=== PATIENT | female | born 1985 | race Caucasian/White ===

== ENCOUNTER 2018-11-21 22:51 | Emergency (ER) | payer OTHER ==
[2018-11-21 23:32] LABS: Absolute Lymphocytes (CBC) 2.8 K/uL (0.7-4.9); Absolute Monocytes 0.7 K/uL (0.1-1.3); Absolute Neutrophil 10.8 K/uL (1.8-8.0); Basophils % 0.4 % (0-1.3); Eosinophils % 1.7 % (0-4.4); Hematocrit 41.5 % (36.0-45.0); Lymphocytes % 19.4 % (15.3-44.8); MPV 9.4 fL (7.6-11.3); RBC Red Blood Cell Count 4.59 M/uL (3.86-4.86)
[2018-11-22 00:04] LABS: BUN Blood Urea Nitrogen 10 mg/dL (7-18); Bicarbonate 20 mmol/L (21-32); Glucose Level 128 mg/dL (74-106); HCG, Quantitative 50566 mIU/mL (1-3); Potassium 3.7 mmol/L (3.5-5.1); Sodium Level 138 mmol/L (136-145)
--- NOTE | 2018-11-22 00:52 | EDPHYS ---
Physician Documentation [facility] Name: Kaitlin Gimenez Age: 33 yrs Sex: Female : 1985 Arrival Date: 11/21/2018 Time: 22:52 Bed 7 Private MD: Emely Dick H ED Physician Kurt Roman HPI: 11/22 00:42 This 33 yrs old Female presents to ER via Ambulatory with complaints of jr8 Vaginal Bleeding, + Preg <12wks. 00:42 The patient presents to the emergency department with vaginal bleeding, that is jr8 moderate, with clots. The estimated gestational age is 8 weeks. course: care: private OB physician, Leakage of Fluid: none appreciated, Ultrasound: the patient has not had an ultrasound. Previous pregnancies: in previous pregnancies patient has had no complications. Associated signs and symptoms: Pertinent positives: abdominal pain. The patient has not experienced similar symptoms in the past. The patient has not recently seen a physician. Patient stated that her boyfriend and her had finished having sexual intercourse. While take a shower saw bleeding and large clots come out of her vagina. Mild abdominal cramping as well . 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 - Ebola Screening: : No symptoms or risks identified at this time. - Social history:: Smoking status: Patient uses tobacco products, smokes one-half pack cigarettes per day. ROS: 11/22 00:42 Eyes: Negative for injury, pain, redness, and discharge, ENT: Negative for injury, jr8 pain, and discharge, Neck: Negative for injury, pain, and swelling, Cardiovascular: Negative for chest pain, palpitations, and edema, Respiratory: Negative for shortness of breath, cough, wheezing, and pleuritic chest pain, Back: Negative for injury and pain, MS/Extremity: Negative for injury and deformity, Skin: Negative for injury, rash, and discoloration, Neuro: Negative for headache, weakness, numbness, tingling, and seizure. Abdomen/GI: Positive for abdominal cramps, Negative for abdominal pain, nausea, vomiting, and diarrhea. : Positive for vaginal bleeding, menstrual abnormality. Exam: 00:42 Eyes: Pupils equal round and reactive to light, extra-ocular motions intact. Lids and jr8 lashes normal. Conjunctiva and sclera are non-icteric and not injected. Cornea within normal limits. Periorbital areas with no swelling, redness, or edema. ENT: Nares patent. No nasal discharge, no septal abnormalities noted. Tympanic membranes are normal and external auditory canals are clear. Oropharynx with no redness, swelling, or masses, exudates, or evidence of obstruction, uvula midline. Mucous membranes moist. Neck: Trachea midline, no thyromegaly or masses palpated, and no cervical lymphadenopathy. Supple, full range of motion without nuchal rigidity, or vertebral point tenderness. No Meningismus. Cardiovascular: Regular rate and rhythm with a normal S1 and S2. No gallops, murmurs, or rubs. Normal PMI, no JVD. No pulse deficits. Respiratory: Lungs have equal breath sounds bilaterally, clear to auscultation and percussion. No rales, rhonchi or wheezes noted. No increased work of breathing, no retractions or nasal flaring. Abdomen/GI: Soft, non-tender, with normal bowel sounds. No distension or tympany. No guarding or rebound. No evidence of tenderness throughout. Back: No spinal tenderness. No costovertebral tenderness. Full range of motion. Skin: Warm, dry with normal turgor. Normal color with no rashes, no lesions, and no evidence of cellulitis. MS/ Extremity: Pulses equal, no cyanosis. Neurovascular intact. Full, normal range of motion. Neuro: Awake and alert, GCS 15, oriented to person, place, time, and situation. Cranial nerves II-XII grossly intact. Motor strength 5/5 in all extremities. Sensory grossly intact. Cerebellar exam normal. Normal gait. Vital Signs: 11/21 23:14 BP 137 / 96; Pulse 92; Resp 18; Temp 98.9(O); Pulse Ox 98% on R/A; lp1 23:27 Weight 95.25 kg; Height 5 ft. 7 in. (170.18 cm); lp1 11/22 00:24 BP 131 / 93; Pulse 94; Resp 18; Pulse Ox 95% on R/A; ca1 02:00 BP 130 / 91; Pulse 88; Resp 19; Pulse Ox 97% on R/A; ca1 11/21 23:27 Body Mass Index 32.89 (95.25 kg, 170.18 cm) lp1 MDM: 11/21 22:57 Patient medically screened. [facility] 11/22 00:42 Data reviewed: vital signs, nurses notes, lab test result(s), radiologic studies, [facility] ultrasound. Data interpreted: Pulse oximetry: on room air is 95 %. Interpretation: normal. Counseling: I had a detailed discussion with the patient and/or guardian regarding: the historical points, exam findings, and any diagnostic results supporting the discharge/admit diagnosis, lab results, radiology results, the need for outpatient follow up, an OB/Gyne specialist, to return to the emergency department if symptoms worsen or persist or if there are any questions or concerns that arise at home. 11/21 23:02 Order name: Quantitative Hcg; Complete Time: 00:24 [facility] 11/21 23:02 Order name: Abo/rh Typing [facility] 11/21 23:02 Order name: Basic Metabolic Panel; Complete Time: 00:24 [facility] 11/21 23:02 Order name: CBC with Diff; Complete Time: 00:00 [facility] 11/22 00:00 Order name: ABO/RH no charge; Complete Time: 00:00 [facility] 11/22 00:24 Order name: Urine Dipstick--Ancillary (enter results) [facility] 11/21 23:45 Order name: Transvaginal Study (probe) bb 11/22 00:24 Order name: Urine --Ancillary (enter results) [facility] 11/22 00:40 Order name: Rh Typing [facility] 11/22 00:40 Order name: Antibody Screen EDAZ 11/22 00:40 Order name: Fetalscreen [facility] 11/22 00:40 Order name: Cord Rh type [facility] 11/22 00:40 Order name: Rhogam [facility] 11/21 23:02 Order name: Urine Test (obtain specimen); Complete Time: 00:23 [facility] 11/21 23:02 Order name: IV Saline Lock; Complete Time: 23:21 [facility] 11/21 23:02 Order name: Labs collected and sent; Complete Time: 23:22 [facility] 11/21 23:02 Order name: NPO; Complete Time: 23:22 [facility] 11/21 23:02 Order name: Urine Dipstick-Ancillary (obtain specimen); Complete Time: 23: [facility] Administered Medications: 01:50 Drug: RhoGAM (Human) 300 mcg Route: IM; Site: right gluteus; ca1 02:12 Follow up: Response: No adverse reaction ca1 Point of Care Testing: Urine : 02:10 hCG Reading: Positive; Control Reading: Positive; ca1 Disposition: 02:13 Co-signature as Attending Physician, Kurt Roman MD. estefania Disposition: 11/22/18 00:51 Discharged to Home. Impression: Threatened . - Condition is Stable. - Discharge Instructions: Threatened Miscarriage, Vaginal Bleeding During , First Trimester, Pelvic Rest. - Medication Reconciliation Form, Thank You Letter, Antibiotic Education, Prescription Opioid Use form. - Follow up: Private Physician; When: 2 - 3 days; Reason: Recheck today's complaints, Continuance of care, Re-evaluation by your physician. - Problem is new. - Symptoms have improved. Signatures: Dispatcher [employer] Kurt Landin MD MD pkl Gela Quiroz RN RN lp1 Aaron Magallanes PA PA jr8 Jyotsna Hawthorne RN RN ca1 Corrections: (The following items were deleted from the chart) 02:12 00:51 11/22/2018 00:51 Discharged to Home. Impression: Threatened . Condition ca1 is Stable. Forms are Medication Reconciliation Form, Thank You Letter, Antibiotic Education, Prescription Opioid Use. Follow up: Private Physician; When: 2 - 3 days; Reason: Recheck today's complaints, Continuance of care, Re-evaluation by your physician. Problem is new. Symptoms have improved. jr8
--- NOTE | 2018-11-22 00:52 | ER ---
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 Transition of care: patient was not received from another setting of care. Onset of symptoms was November 21, 2018 at 22:30. Risk Assessment: Do you want to hurt yourself or someone else? Patient reports no desire to harm self or others. Initial Sepsis Screen: Does the patient meet any 2 criteria? No. Patient's initial sepsis screen is negative. Does the patient have a suspected source of infection? No. Patient's initial sepsis screen is negative. Care prior to arrival: None. 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 - Ebola Screening: : No symptoms or risks identified at this time. - Social history:: Smoking status: Patient uses tobacco products, smokes one-half pack cigarettes per day. Screenin:27 Abuse screen: Denies threats or abuse. Denies injuries from another. Nutritional lp1 screening: No deficits noted. Tuberculosis screening: No symptoms or risk factors identified. Fall Risk None identified. Assessment: 23:20 General: Appears in no apparent distress. Behavior is calm, cooperative, appropriate ca1 for age. Pain: Complains of pain in abdomen Pain currently is 3 out of 10 on a pain scale. Quality of pain is described as crampy. Neuro: Level of Consciousness is awake, alert, obeys commands, Oriented to person, place, time, situation. Cardiovascular: Heart tones S1 S2 present Capillary refill < 3 seconds Patient's skin is warm and dry. Respiratory: Airway is patent Trachea midline Respiratory effort is even, unlabored, Respiratory pattern is regular, symmetrical, Breath sounds are clear bilaterally. 23:20 GI: Abdomen is flat, non-distended, Bowel sounds present X 4 quads. Abd is soft Abdomen ca1 is tender to palpation Reports cramping. : Reports vaginal bleeding that is with clots, since 30 minutes ago when she was in the shower. EENT: No signs and/or symptoms were reported regarding the EENT system. Derm: Skin is intact, is healthy with good turgor, Skin is pink, warm \T\ dry. Musculoskeletal: Circulation, motion, and sensation intact. Range of motion: intact in all extremities. 23:54 Reassessment: Ultrasound at bedside. lp1 11/22 00:24 Reassessment: Patient appears in no apparent distress at this time. Patient and/or ca1 family updated on plan of care and expected duration. Pain level reassessed. Patient is alert, oriented x 3, equal unlabored respirations, skin warm/dry/pink. Sitting in bed with family at bedside. 01:12 Reassessment: Patient appears in no apparent distress at this time. Patient and/or ca1 family updated on plan of care and expected duration. Pain level reassessed. Patient is alert, oriented x 3, equal unlabored respirations, skin warm/dry/pink. Awaiting RhoGAM. 02:00 Reassessment: Patient appears in no apparent distress at this time. Patient and/or ca1 family updated on plan of care and expected duration. Pain level reassessed. Patient is alert, oriented x 3, equal unlabored respirations, skin warm/dry/pink. Patient sitting on bed with significant other awaiting observation after administration of RhoGam. Vital Signs: 11/21 23:14 BP 137 / 96; Pulse 92; Resp 18; Temp 98.9(O); Pulse Ox 98% on R/A; lp1 23:27 Weight 95.25 kg; Height 5 ft. 7 in. (170.18 cm); lp1 11/22 00:24 BP 131 / 93; Pulse 94; Resp 18; Pulse Ox 95% on R/A; ca1 02:00 BP 130 / 91; Pulse 88; Resp 19; Pulse Ox 97% on R/A; ca1 11/21 23:27 Body Mass Index 32.89 (95.25 kg, 170.18 cm) lp1 ED Course: 11/21 22:52 Patient arrived in ED. do 22:52 Emely Dick DO is Private Physician. do 22:57 Aaron Magallanes PA is PHCP. jr8 22:57 Kurt Roman MD is Attending Physician. jr8 23:01 Triage completed. lp1 23:04 Jyotsna Hawthorne, AMARILIS is Primary Nurse. ca1 23:17 Arm band placed on left wrist. lp1 23:20 Patient has correct armband on for positive identification. Placed in gown. Bed in low ca1 position. Call light in reach. Side rails up X 1. Pulse ox on. NIBP on. Warm blanket given. 23:20 Initial lab(s) drawn, by me, sent to lab. Inserted saline lock: 20 gauge in right ca1 antecubital area, using aseptic technique. Blood collected. 11/22 00:22 Transvaginal Study (probe) In Process Unspecified. EDMS 00:24 Ultrasound completed. Patient tolerated well. Notified CORONER'S JUROR/LUZMARIA abbasi. sg3 01:59 Rhogam Sent. ca1 02:00 No provider procedures requiring assistance completed. IV discontinued, intact, ca1 bleeding controlled, No redness/swelling at site. Pressure dressing applied. Administered Medications: 01:50 Drug: RhoGAM (Human) 300 mcg Route: IM; Site: right gluteus; ca1 02:12 Follow up: Response: No adverse reaction ca1 Point of Care Testing: Urine : 02:10 hCG Reading: Positive; Control Reading: Positive; ca1 Outcome: 00:51 Discharge ordered by . jr8 02:00 Discharged to home ambulatory, with significant other. ca1 02:00 Condition: stable 02:00 Discharge instructions given to patient, significant other, Instructed on discharge instructions, follow up and referral plans. Demonstrated understanding of instructions, follow-up care. 02:12 Patient left the ED. ca1 Signatures: Dispatcher [employer] EDMS Richie Gela, AMARILIS RN lp1 Aaron Magallanes PA PA jr8 Arminda Baker [facility] Jyotsna Hawthorne RN RN ca1 Corrections: (The following items were deleted from the chart) 00:44 00:24 BP 236 / 93; Pulse 94bpm; Resp 18bpm; Pulse Ox 95% RA; ca1 ca1
[2018-11-22 01:03] LABS: Urine Blood 2+ (NEG); Urine Glucose NEGATIVE (NEG); Urine Protein NEGATIVE (NEG); Urine Specific Gravity >1.030 (1.005-1.030); Urine pH 5.5 (5.0-7.0)
--- NOTE | 2018-11-22 11:52 | RAD REPORT ---
EXAM DESCRIPTION: US - Transvaginal Study Probe - 11/22/2018 12:22 am CLINICAL HISTORY: ABD CRAMPING, COMPARISON: No comparisons FINDINGS: A single gestational sac is seen within the uterus. The shape of the sac is within normal limits for gestational age. Within the sac is a single pole with crown-rump length of 17 mm, co rrelating to estimated gestational age of 8 weeks and 1 day. Estimated date of delivery is 07/03/2019 . Heart rate is 171 bpm. The placenta is not yet developed due to early gestational age. 8 x 6 mm inferior subchorionic bleed. The maternal adnexa are within normal limits. The left ovary was not visualized. Normal Doppler blood flow was demonstrated to the right ovary. IMPRESSION: Single live early intrauterine gestation with estimated gestational age of 8 weeks and 1 day, JUMA 07/03/19.
== END 2018-11-22 02:12 | disposition home or self-care (01) ==
LOC: ER 22:51
DX: O20.0 Threatened abortion (principal); O99.281 Endocrine, nutritional and metabolic diseases complicating pregnancy, first trimester; E03.9 Hypothyroidism, unspecified; O99.331 Smoking (tobacco) complicating pregnancy, first trimester; F17.210 Nicotine dependence, cigarettes, uncomplicated; Z3A.08 8 weeks gestation of pregnancy; Z79.899 Other long term (current) drug therapy
CPT/HCPCS: 36415; 76830; 80048; 81003; 81025; 84702; 85025; 86850; 86900; 86901; 96372; 99284; J2790

== ENCOUNTER 2018-11-27 19:19 | Emergency (ER) | payer OTHER ==
--- NOTE | 2018-11-27 19:45 | ER ---
Nurse's Notes [facility] Name: Kaitlin Gimenez Age: 33 yrs Sex: Female : 1985 Arrival Date: 11/27/2018 Time: 19:20 Bed Waiting Private MD: Diagnosis: Presentation: 11/27 19:43 Note Patient told registration staff that she did not want to wait any longer and aj1 walked out of the ER. ED Course: 19:20 Patient arrived in ED. ag3 Administered Medications: No medications were administered Outcome: 19:43 Eloped from waiting room, before seeing physician ajYulisa 19:44 Patient left the ED. aj1 Signatures: Lou Markham RN RN aj1 Pura Baez ag3
== END 2018-11-27 19:44 | disposition left against medical advice (07) ==
LOC: ER 19:19
DX: Z53.21 Procedure and treatment not carried out due to patient leaving prior to being seen by health care provider (principal)

== ENCOUNTER 2022-08-05 18:42 | Emergency (ER) | payer OTHER, SELFPAY ==
--- OUTSIDE RECORDS SUMMARY | 2022-08-05 18:45 | XMS REPORT | Continuity of Care Document ---
:1985 Author Organization [facility] t Address [address] [place] [address] Care Team Providers Name Role Phone SONAL TAYLOR Attending Clinician Unavailable JAYDA ZULETA Attending Clinician Unavailable Problems This patient has no known problems. Allergies, Adverse Reactions, Alerts Allergy Allergy Status Severity Reaction(s) Onset Inactive Treating Comm ents Source Name Type Date Date Clinician NO KNOWN Drug Active [facility] ALLERGIE Class [facility] Medications This patient has no known medications. Procedures This patient has no known procedures. Encounters Start End Encounter Admission Attending Care Care Encounter Source Date/Time Date/Time Type Type Clinicians Facility Department ID 2021-06-23 2021-06-23 Outpatient R [facility] [id number] Univers 12:40:00 12:40:00 [id number] [facility] 2021-06-23 2021-06-23 Outpatient R CLAUDIA [facility] [id number] Univers 12:40:00 12:40:00 SONAL [facility] 2020-07-26 2020-07-26 Outpatient R SONG [facility] [id number] Univers 14:30:00 14:30:00 JAYDA [id number] [facility] 2020-07-26 2020-07-26 Outpatient R SONG [facility] [id number] Univers 14:30:00 14:30:00 JAYDA [facility] Results This patient has no known results.
--- NOTE | 2022-08-05 19:15 | ER ---
Nurse's Notes [facility] Name: Kaitlin Gimenez Age: 37 yrs Sex: Female : 1985 Arrival Date: 08/05/2022 Time: 18:43 Bed Waiting Private MD: Emely Dick H Diagnosis: Presentation: 08/05 19:14 Note notified by registration pt left the ED prior to discharge. bb ED Course: 18:43 Patient arrived in ED. am2 18:43 Emely Dick DO is Private Physician. am2 Administered Medications: No medications were administered Outcome: 19:15 Patient left the ED. bb Signatures: Alexia Aggarwal RN RN Chikis Lemus am2
== END 2022-08-05 19:15 | disposition left against medical advice (07) ==
LOC: ER 18:42
DX: Z02.9 Encounter for administrative examinations, unspecified (principal)

== ENCOUNTER 2023-11-03 23:52 | Emergency (ER) | payer OTHER ==
--- OUTSIDE RECORDS SUMMARY | 2023-11-03 23:55 | XMS REPORT | Continuity of Care Document ---
Author Name Unknown Address [address] [facility] [address] [place] [address] [facility] thconnect Address [address] [facility] 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 Role Phone RILEY SEARS Primary Care Physician Unavail able [email or web address]_S Attending Clinician Unavailanna marie spivey Doctor Unassigned, [place] Attending Clinician U Luis Alberto Meza Attending Clinician UnavailHi Jones DO Attending Clinician [phone] Cara Morel DO Attending Clinician [phone] Izzy Muniz MD Attending Clinician [phone] Pavan Solano MD Attending Clinician [phone] PAVAN SOLANO Attending Clinician Unavailable SONAL TAYLOR Attending Clinician Unavailable JAYDA ZULETA Attending Clinician Unavailable [email or web address]_S Admitting Clinician UnavailPavan Greco MD Admitting Clinician [phone] PAVAN SOLANO Admitting Clinician Unavailable Payers Payer Name Policy Type Policy Number Effective Date Expirati on Date Source Problems Condition Name Condition Details Condition Category Status Onset Date Resolution Date Last Treatment Date Treating Clinician Comments Source Acute abdominal pain Acute abdominal pain Disease Active 08-06 00:00: 00 [facility] 37 weeks gestation of 37 weeks gestation of Disease Active 20 00:00: 00 [facility] Tubal ligation status Tubal ligation status Disease Active 15 00:00: 00 [facility] Preeclamps ia Preeclamps ia Disease Active 05-27 00:00: 00 [facility] Obesity (BMI 30-39.9) Obesity (BMI 30-39.9) Disease Active 05-27 00:00: 00 [facility] Elevated blood pressure affecting in third trimester, antepartum Elevated blood pressure affecting in third trimester, antepartum Disease Active 05-25 00:00: 00 [facility] Rh negative state in antepartum period Rh negative state in antepartum period Disease Active 12-28 00:00: 00 Overview: Formattin g of this note might be different from the original. Will need rhogam at 28 weeks [facility] Cervical high risk human papillomav irus (HPV) DNA test positive Cervical high risk human papillomav irus (HPV) DNA test positive Disease Active 12-28 00:00: 00 Overview: Formattin g of this note might be different from the original. 11/2018 NIL pap with positive HPV see scanned records, need cotesting in 12 months [facility] Obesity affecting Obesity affecting Disease Active 12-25 00:00: 00 [facility] Supervisio n of high-risk of elderly multigravi da Supervisio n of high-risk of elderly multigravi da Disease Active 12-25 00:00: 00 [facility] Hypothyroi d in , antepartum Hypothyroi d in , antepartum Disease Active 12-25 00:00: 00 [facility] History of section History of section Disease Active 12-25 00:00: 00 [facility] Allergies, Adverse Reactions, Alerts Allergy Name Allergy Type Status Severity Reaction(s) Onset Date Inactive Date Treating Clinician Comments Source NO KNOWN ALLERGIE S Drug Class Active [facility] Social History Social Habit Start Date Stop Date Quantity Comments Source History of tobacco use Cigarette Smoker [facility] Cigarettes smoked current (pack per day) - Reported 2022-08-06 00:00:00 2022-08-06 00:00:00 [facility] Cigarette pack-years 2022-08-06 00:00:00 2022-08-06 00:00:00 [facility] Tobacco use and exposure 2022-08-06 00:00:00 2022-08-06 00:00:00 Smokeless tobacco non-user [facility] Alcohol intake 2022-08-06 00:00:00 2022-08-06 00:00:00 Current non-drinker of alcohol (finding) [facility] Tobacco Comment 2022-08-06 00:00:00 2022-08-06 00:00:00 Smokes half pack a day [facility] Exposure to SARS-CoV-2 (event) 2022-07-26 00:00:00 2022-08-05 20:38:00 Not sure [facility] Sex Assigned At 1985 00:00:00 1985 00:00:00 [facility] Smoking Status Start Date Stop Date Source Smokes tobacco daily 2022-08-06 00:00:00 [facility] Medications Ordered Medication Name Filled Medication Name Start Date Stop Date Current Medication? Ordering Clinician Indication Dosage Frequency Signature (SIG) Comments Components Source levothyroxi ne (SYNTHROID) tablet 200 mcg 08-07 11:00: 00 Yes 200ug 200 mcg, Oral, QAM-0600, First dose on Fri08/07/22 at 0600, Until Discontinu ed, Routine [facility] lisinopriL 10 mg tablet 08-07 00:00: 00 09-07 04:59 :00 No [id number] 10mg Take 1 tablet by mouth in the morning for 30 days. [facility] enoxaparin (LOVENOX) injection 40 mg 08-06 22:00: 00 Yes 40mg 40 mg, Subcutaneo us, DAILY, First dose on Fri08/06/22 at 1700, Until Discontinu ed, Routine [facility] lisinopriL (PRINIVIL,Z ESTRIL) tablet 10 mg 08-06 14:00: 00 Yes 10mg 10 mg, Oral, DAILY, First dose on Fri08/06/22 at 0900, Until Discontinu ed, Routine [facility] amLODIPine (NORVASC) tablet 10 mg 08-06 14:00: 00 Yes 10mg 10 mg, Oral, DAILY, First dose on Fri08/06/22 at 0900, Until Discontinu ed, Routine [facility] hydroCHLORO thiazide (ESIDRIX) tablet 50 mg 08-06 14:00: 00 Yes 50mg 50 mg, Oral, DAILY, First dose on Fri08/06/22 at 0900, Until Discontinu ed, Routine [facility] NaCl 0.9% (NS) IV infusion 1,000 mL 08-06 11:15: 00 08-06 14:59 :10 No 1000mL at 125 mL/hr, IV Infusion, CONTINUOUS , Starting on Fri08/06/22 at 0615, Until Fri08/06/22 at 0959, Routine [facility] ondansetron (ZOFRAN (PF)) injection 4 mg 08-06 11:02: 42 Yes 4mg 4 mg, Slow IV Push, Q6HPRN, Starting on Fri08/06/22 at 0602, Until Discontinu ed, Routine, Nausea and Vomiting (N/V) [facility] morpHINE (2 mg/mL) injection 2 mg 08-06 11:02: 33 08-07 11:01 :33 No 2mg 2 mg, Slow IV Push, Q4HPRN, Starting on Fri08/06/22 at 0602, Until Fri08/07/22 at 0601, Routine, Pain (scale 7-10) [facility] traMADoL (ULTRAM) tablet 50 mg 08-06 11:02: 26 08-08 11:01 :26 No 50mg 50 mg, Oral, Q8HPRN, Starting on Fri08/06/22 at 0602, Until Fri08/08/22 at 0601, Routine, Pain (scale 4-6) [facility] acetaminoph en (TYLENOL) tablet 650 mg 08-06 11:02: 23 Yes 650mg 650 mg, Oral, Q6HPRN, Starting on Fri08/06/22 at 0602, Until Discontinu ed, Routine, Pain (scale 1-3) [facility] docusate calcium (SURFAK) capsule 240 mg 08-06 10:59: 50 Yes 240mg 240 mg, Oral, QDAILYPRN, Starting on Fri08/06/22 at 0559, Until Discontinu ed, Routine, Constipati on [facility] ondansetron (ZOFRAN (PF)) injection 4 mg 08-06 08:15: 00 08-06 08:17 :00 No 4mg 4 mg, Slow IV Push, ONCE, 1 dose, On Fri08/06/22 at 0315, NIK [facility] FENTanyl PF (SUBLIMAZE (PF)) injection 50 mcg 08-06 08:12: 00 08-06 08:17 :00 No 50ug 50 mcg, Slow IV Push, ONCE, 1 dose, On Fri08/06/22 at 0315, NIK [facility] acetaminoph en ADULT (OFIRMEV) injection 1,000 mg 08-06 07:35: 00 08-06 08:41 :00 No 1000mg 1,000 mg, IV Infusion, at 400 mL/hr Administer over 15 Minutes, ONCE, 1 dose, On Fri08/06/22 at 0245, NIK
In dication: Non-periop erative Patient
Approved by: Per Policy (NPO Status) [facility] hydralAZINE (APRESOLINE ) injection 20 mg 08-06 07:34: 00 08-06 07:44 :00 No 20mg 20 mg, Slow IV Push, ONCE, 1 dose, On Fri08/06/22 at 0245, NIK [facility] iopamidol (ISOVUE 370-500 mL) injection 85 mL 08-06 07:30: 00 08-06 07:30 :00 No [id number] 85mL 85 mL, Intravenou s, ONCE, 1 dose, On Fri08/06/22 at 0230, Routine [facility] cloNIDine (CATAPRES) tablet 0.3 mg 08-06 04:37: 00 08-06 04:41 :00 No .3mg 0.3 mg, Oral, ONCE, 1 dose, On Fri08/05/22 at 2345, [facility] labetaloL (NORMODYNE) injection 20 mg 08-06 04:36: 00 08-06 04:41 :00 No 20mg 20 mg, Slow IV Push, ONCE, 1 dose, On Fri08/05/22 at 2345, [facility] lisinopriL (PRINIVIL,Z ESTRIL) tablet 5 mg 08-06 03:15: 00 08-06 02:46 :00 No 5mg 5 mg, Oral, ONCE NOW, 1 dose, On Fri08/05/22 at 2215, [facility] labetaloL (NORMODYNE) injection 20 mg 08-06 03:15: 00 08-06 03:23 :00 No 20mg 20 mg, Slow IV Push, ONCE, 1 dose, On Fri08/05/22 at 2215, Routine [facility] maalox:diph enhydrAMINE :lidocaine 2 % viscous 1:1:1 ([facility]) oral suspension 15 mL 08-06 02:30: 00 08-06 02:46 :00 No 15mL 15 mL, Oral, ONCE, 1 dose, On Fri08/05/22 at 2130, Routine [facility] ketorolac (TORADOL) injection 15 mg 08-06 02:30: 00 08-06 03:23 :00 No 15mg 15 mg, Slow IV Push, ONCE, 1 dose, On Fri08/05/22 at 2130, [facility] pantoprazol e (PROTONIX) 80 mg in NaCl 0.9% (NS) 20 mL syringe 08-06 02:22: 00 08-06 02:32 :00 No 80mg 80 mg, IV Push, ONCE, 1 dose, On Fri08/05/22 at 2130, Administer over 2 Minutes, 20 mL [facility] docusate calcium 240 mg capsule 08-06 00:00: 00 Yes [id number] 240mg Take 1 capsule by mouth once daily as needed for Constipati on. [facility] docusate calcium 240 mg capsule 08-06 00:00: 00 Yes [id number] 240mg Take 1 capsule by mouth once daily as needed for Constipati on. [facility] docusate calcium 240 mg capsule 08-06 00:00: 00 Yes [id number] 240mg Take 1 capsule by mouth once daily as needed for Constipati on. [facility] amLODIPine 5 mg tablet 08-06 00:00: 00 09-06 04:59 :00 No [id number] 5mg Take 1 tablet by mouth in the morning for 30 days. [facility] levothyroxi ne 200 mcg tablet 08-18 00:00: 00 Yes [id number] 200ug Take 1 tablet by mouth every morning. [facility] levothyroxi ne 200 mcg tablet 08-18 00:00: 00 Yes [id number] 200ug Take 1 tablet by mouth every morning. [facility] levothyroxi ne 200 mcg tablet 08-18 00:00: 00 Yes [id number] 200ug Take 1 tablet by mouth every morning. [facility] hydroCHLORO thiazide 50 mg tablet 06-14 00:00: 00 08-06 00:00 :00 No [id number] 50mg Take 1 tablet by mouth daily. [facility] simethicone 80 mg chewable tablet 06-13 00:00: 00 Yes [id number] 160mg Take 2 tablets by mouth after meals and at bedtime as needed for Gas. [facility] simethicone 80 mg chewable tablet 06-13 00:00: 00 Yes [id number] 160mg Take 2 tablets by mouth after meals and at bedtime as needed for Gas. [facility] simethicone 80 mg chewable tablet 06-13 00:00: 00 Yes [id number] 160mg Take 2 tablets by mouth after meals and at bedtime as needed for Gas. [facility] acetaminoph en-codeine 300-30 mg tablet 06-13 00:00: 00 08-06 00:00 :00 No [id number] 1{tbl} Take 1 tablet by mouth every 4 (four) hours as needed for Pain (scale 7-10). [facility] docusate calcium 240 mg capsule 06-13 00:00: 00 08-06 00:00 :00 No [id number] 240mg Take 1 capsule by mouth once daily as needed for Constipati on. [facility] ibuprofen 600 mg tablet 06-13 00:00: 00 08-06 00:00 :00 No [id number] 600mg Take 1 tablet by mouth every 6 (six) hours as needed for Pain (scale 1-3). [facility] PNV 67-iron ps-folate no.1-dha (VITAFOL ULTRA) 29 mg iron- 1 mg-200 mg Cap 12-28 00:00: 00 Yes [id number] 1{each} Take 1 Each by mouth daily. [facility] PNV 67-iron ps-folate no.1-dha (VITAFOL ULTRA) 29 mg iron- 1 mg-200 mg Cap 12-28 00:00: 00 Yes [id number] 1{each} Take 1 Each by mouth daily. [facility] PNV 67-iron ps-folate no.1-dha (VITAFOL ULTRA) 29 mg iron- 1 mg-200 mg Cap 12-28 00:00: 00 Yes [id number] 1{each} Take 1 Each by mouth daily. [facility] Vital Signs Vital Name Observation Time Observation Value Comments S rajani Systolic blood pressure 2022-08-06 16:23:00 138 mm[Hg] [facility] Diastolic blood pressure 2022-08-06 16:23:00 80 mm[Hg] [place] [facility] Heart rate 2022-08-06 16:23:00 82 /min [facility] Body temperature 2022-08-06 16:23:00 36 Amber [facility] Respiratory rate 2022-08-06 16:23:00 16 /min [facility] Oxygen saturation in Arterial blood by Pulse oximetry 2022-08-06 16:23:00 98 /min [place] [facility] Body height 2022-08-06 11:17:00 167.6 cm [facility] Body weight 2022-08-06 11:17:00 111.993 kg [facility] BMI 2022-08-06 11:17:00 39.85 kg/m2 [facility] Procedures Procedure Date / Time Performed Performing Clinician Source AUTHORIZATION FOR RELEASE OF PHI 2022-11-11 06:01:00 Doctor Unassigned, [place] [facility] AUTHORIZATION FOR RELEASE OF PHI 2022-10-23 06:01:00 Doctor Unassigned, [place] [facility] EKG-12 LEAD 2022-08-06 10:37:18 Hi Jones [facility] CT ABDOMEN PELVIS W CONTRAST 2022-08-06 06:37:41 Karen Hi [facility] URINALYSIS 2022-08-06 04:12:00 Hi Jones [facility] POCT TEST 2022-08-06 04:12:00 Hi Jones [facility] COVID-19 (ID NOW RAPID TESTING) 2022-08-06 03:16:00 Karen Hi [facility] LAB ONLY COVID INTERPRETATION 2022-08-06 03:16:00 Hi Jones [facility] LIPASE 2022-08-06 03:16:00 Hi Jones [facility] COMP. METABOLIC PANEL (52702) 2022-08-06 03:16:00 Hi Jones [facility] CBC WITH DIFF 2022-08-06 03:16:00 Hi Jones [facility] XR CHEST 1 VW 2022-08-06 03:01:00 Hi Jones [facility] NOTICE OF PRIVACY PRACTICES 2022-08-06 01:30:54 Doctor Unassigned, [place] [facility] CONSENT/REFUSAL FOR DIAGNOSIS AND TREATMENT 2022-08-06 01:29:20 Doctor Unassigned, [place] [facility] Encounters Start Date/Time End Date/Time Encounter Type Admission Type Attending [facility] Care Facility Care Department Encounter ID Source 2023-09-24 00:00:00 2023-09-24 00:00:00 Outpatient GC_GCBZW_Ka diyala_S [facility] [id number] [facility] 2022-11-11 00:00:00 2022-11-11 00:00:00 Orders Only Doctor Unassigned, [place] [facility] 1..840.114 [id number] [facility] 2022-10-23 00:00:00 2022-10-23 00:00:00 Orders Only Doctor Unassigned, [place] [facility] [id number] [facility] 2022-10-21 17:32:00 2022-10-21 17:32:00 Outpatient Luis Alberto Boogie [facility] [id number] 93 [facility] 2022-08-05 20:42:00 2022-08-06 13:35:00 Hospital Encounter Hi Jones [facility], Pavan Malcolm [facility] 1..840.114 [id number] [id number] [facility] 2022-08-05 20:42:00 2022-08-06 13:35:00 Outpatient PAVAN GIORDANO [facility] [id number] [facility] 2021-06-23 12:40:00 2021-06-23 12:40:00 Outpatient R SONAL TAYLOR [facility] [id number] [facility] 2020-07-26 14:30:00 2020-07-26 14:30:00 Outpatient R JAYDA ZULETA [facility] [id number] [facility] Results Test Description Test Time Test Comments Results Result Co mments Source [id number]:12:00* Test Item Value Reference Range Interpretation Comme nts POCT PREG (test code = 1605) Negative On board controls acceptable with C Line (test code = 3574) Present POCT PREG LOT # (test code = 3575) [id number] POCT PREG TEST DATE ( test code = 3576) 10-23-2023 Lab Interpretation (test cod e = 02725-2) Normal [facility] (05559)2022-08-06 03:56:52* Test Item Value Reference Range Interpretation Comme nts NA (test code = 9192767336) 137 mmol/L 135-145 K (test code = 3096799915) 4.5 mmol/L 3.5-5 CL (test code = 0008049772) 104 mmol/L 98-108 CO2 TOTAL (test code = 3442227171) 26 mmol/L 23-31 AGAP (test code = 1407243775) 2-16 BUN (test code = 1424713503) 13 mg/dL 7-23 GLUCOSE (test code = 6119678150) 109 mg/dL 70-110 CREATININE (test code = 5007552498) 0.83 mg/dL 0.5-1.04 TOTAL BILI (test code = 5855629228) 0.2 mg/dL 0.1-1.1 CALCIUM (test code = 4227817146) 9.1 mg/dL 8.6-10.6 T PROTEIN (test code = 5116351337) 7.0 g/dL 6.3-8.2 ALBUMIN (test code = 1695051205) 4.2 g/dL 3.5-5 ALK PHOS (test code = 7925167502) 115 U/L 34-122 ALTv (test code = 1742-6) 21 U/L 5-35 AST(SGOT) (test code = 5381466968) 19 U/L 13-40 eGFR (test code = 5955620761) mL/min/1.73m2 FLORENCE (test code = FLORENCE) Association of Glomerular Filtration Rate (GFR) and Staging of Kidney Disease* + + +- +| GFR (mL/min/1.73 m2) ?| With Kidney Damage ?| ?Without Kidney Damage+ ------+ ----+ ------+| ?>90 ?| ?Stage one ?| ? Normal ?+ -+ + -+| ?60-89 ?| ?Stage two ?| ? Decreased GFR ? + + +- +| ?30-59 ?| ?Stage three ?| ? Stage three ? + + +- +| ?15-29 ?| ?Stage four ? | ? Stage four ?+ -+ + -+| ?<15 (or dialysis) ? ?| ?Stage five ? | ? Stage five ?+ -+ + -+ *Each stage assumes the associated GFR level has been in effect for at least three months. ?Stages 1 to 5, with or without kidney disease, indicate chronic kidney disease. Notes: Determination of stages one and two (with eGFR >59mL/min/1.73 m2) requires estimation of kidney damage for at least three months as defined by structural or functional abnormalities of the kidney, manifested by either:Pathological abnormalities or Markers of kidney damage (including abnormalities in the composition of the blood or urine or abnormalities in imaging tests). [facility]56:51* Test Item Value Reference Range Interpretation Comme nts LIPASE (test code = 9048083923) 87 U/L 0-220 Lab Interpretation (test cod e = 75641-5) Normal [facility]"
[2023-11-04] MEDS ORDERED: NA CHLORIDE 0.9% 1,000 ML ONE (00:21)
[2023-11-04 00:44] LABS: Absolute Lymphocytes (CBC) 1.3 K/uL (0.7-4.9); Hematocrit 42.6 % (36.0-45.0); Lymphocytes % 6.9 % (15.3-44.8); MCV 81.3 fL (80-100); MPV 8.5 fL (7.6-11.3); Platelets 429 thou/uL (152-406); RBC Red Blood Cell Count 5.23 M/uL (3.86-4.86)
[2023-11-04 00:58] LABS: Albumin 3.7 g/dL (3.4-5.0); Bilirubin Total 0.3 mg/dL (0.2-1.0); Magnesium 2.4 mg/dL (1.6-2.4); Protein, Total 8.7 g/dL (6.4-8.2)
[2023-11-04 01:21] LABS: Specific Gravity 1.029 (1.005-1.030)
[2023-11-04 01:23] LABS: Specific Gravity 1.029 (1.005-1.030); Urine Bacteria <20 /HPF (<20); Urine Bilirubin NEGATIVE (Negative); Urine Blood Negative (Negative); Urine Clarity Clear (Clear); Urine Color Light-Yellow (Yellow); Urine Glucose NEGATIVE (Negative); Urine Mucus Slight /HPF (None Seen); Urine Protein 1+ (Negative); Urine RBC None Seen /HPF (None Seen); Urine Urobilinogen Normal (Normal)
--- NOTE | 2023-11-04 04:17 | EDPHYS ---
Physician Documentation [facility] Name: Kaitlin Gimenez Age: 38 yrs Sex: Female : 1985 Arrival Date: 11/03/2023 Time: 23:52 Bed DX1 Private MD: ED Physician Bryson Zafar HPI: 11/04 00:00 This 38 yrs old Female presents to ER via EMS with complaints of Nausea and Vomiting. cp 00:00 Patient is a 38-year-old female who presents to the emergency department with cp complaints of nausea vomiting started about 10:00 this morning. Patient reports she received the semaglutide injection for weight loss at about 9:00 this morning and about an hour later started vomiting. Patient denies any abdominal pain, denies any diarrhea and reports she is been vomiting since 10:00 this morning. Patient reports she has received the injection in the past without any reaction but had skipped for about a month and a half and when she resumed the injection today she did receive the highest dose. Historical: - Allergies: 00:00 No Known Allergies; jb4 - PMHx: 00:00 Hypothyroidism; HTN (Hypothyroidism); jb4 - PSHx: 00:00 (Hypothyroidism); jb4 ROS: 00:05 Constitutional: Positive for poor PO intake, Negative for body aches, chills, fever, cp 00:05 Eyes: Negative for injury, pain, redness, and discharge, cp 00:05 ENT: Negative for drainage from ear(s), ear pain, sore throat, difficulty swallowing, difficulty handling secretions, 00:05 Cardiovascular: Negative for chest pain, edema, palpitations, 00:05 Respiratory: Negative for cough, shortness of breath, wheezing, 00:05 Abdomen/GI: Positive for nausea and vomiting, Negative for abdominal pain, hematemesis, 00:05 Back: Negative for pain at rest, pain with movement, 00:05 Neuro: Negative for altered mental status, dizziness, headache, loss of consciousness, syncope, weakness, 00:05 All other systems are negative, Exam: 00:10 Constitutional: The patient appears in no acute distress, alert, awake, non-toxic, well cp developed, well nourished, 00:10 Head/Face: Normocephalic, atraumatic. cp 00:10 Eyes: Periorbital structures: appear normal, Conjunctiva: normal, no exudate, no injection, Sclera: no appreciated abnormality, Lids and lashes: appear normal, bilaterally, 00:10 ENT: External ear(s): are unremarkable, Nose: is normal, Mouth: Lips: moist, Oral mucosa: pink and intact, moist, Posterior pharynx: Airway: no evidence of obstruction, patent, 00:10 Chest/axilla: Inspection: normal, 00:10 Cardiovascular: Rate: normal, Rhythm: regular, 00:10 Respiratory: the patient does not display signs of respiratory distress, Respirations: normal, no use of accessory muscles, no retractions, labored breathing, is not present, Breath sounds: are clear throughout, no decreased breath sounds, no stridor, no wheezing, 00:10 Abdomen/GI: Inspection: abdomen appears normal, Bowel sounds: active, all quadrants, Palpation: abdomen is soft and non-tender, in all quadrants, 00:10 Back: pain, is absent, ROM is normal, 00:10 Neuro: Orientation: to person, place \T\ time. Mentation: is normal, Motor: moves all fours, strength is normal, Sensation: no obvious gross deficits, Vital Signs: 11/03 23:57 BP 149 / 102; Pulse 84; Resp 16; Pulse Ox 99% on R/A; Weight 98.43 kg (R); Height 5 ft. jb4 6 in. ; Pain 0/10; 11/04 02:06 BP 137 / 93; Pulse 92; Resp 16; Pulse Ox 98% on R/A; jb4 04:30 BP 145 / 89; Pulse 89; Resp 16; Pulse Ox 97% on R/A; pf1 11/03 23:57 Body Mass Index 35.02 (98.43 kg, 167.64 cm) jb4 11/03 23:57 Pain Scale: Adult jb4 MDM: 11/03 23:54 Patient medically screened. cp 11/04 00:30 Differential diagnosis: gastritis, cholecystitis, pancreatitis, appendicitis, viral cp gastroenteritis, gastroenteritis. 04:09 Data reviewed: vital signs, nurses notes, lab test result(s), radiologic studies, CT sp4 scan. ED course: CT - COMPARISON: No relevant prior studies available. FINDINGS: Lung bases: Unremarkable. No mass. No consolidation. Mediastinum: Small hiatal hernia. ABDOMEN: Liver: Mild hepatomegaly. Gallbladder and bile ducts: Unremarkable. No calcified stones. No ductal dilation. Pancreas: Unremarkable. No mass. No ductal dilation. Spleen: Unremarkable. No splenomegaly. Adrenals: Unremarkable. No mass. Kidneys and ureters: Unremarkable. No solid mass. No hydronephrosis. Stomach and bowel: Scattered colonic diverticula. No obstruction. No mucosal thickening. PELVIS: Appendix: No findings to suggest acute appendicitis. Bladder: Unremarkable. Reproductive: 1.9 cm simple right ovarian/adnexal cysts. No follow-up imaging is recommended. 9 mm cyst in the lower uterine segment. ABDOMEN and PELVIS: Intraperitoneal space: Unremarkable. No free air. No significant fluid collection. Bones/joints: No acute fracture. No dislocation. Soft tissues: Unremarkable. Vasculature: Phleboliths in the pelvis. No abdominal aortic aneurysm. Lymph nodes: Unremarkable. No enlarged lymph nodes. IMPRESSION: No acute finding in the abdomen/pelvis.. 04:16 Differential Diagnosis altered mental status, sepsis, flu. Consideration of sp4 Admission/Observation Escalation of care including admission/observation considered. ED course: CT abdomen pelvis is negative, patient is feeling better, elevated white count likely stress response to acute vomiting with white cell demargination. . 11/03 23:55 Order name: CBC with Diff cp 11/04 01: Interpretation: Normal except: WBC 19.50; RBC 5.23; MCH 25.6; MCHC 31.5; PLT 429; RDW cp 17.2; JASMIN% 90.5; LYM% 6.9; MN% 2.2; NEUT A 17.6. 11/03 23:55 Order name: CMP; Complete Time: : cp 11/04 01: Interpretation: Normal except: NA 135; GFR 80; ALK 126; AST 10; TP 8.7; GLOB 5.0; A/G cp 0.7. 11/03 23:55 Order name: Lipase; Complete Time: : cp 11/03 23:55 Order name: Test, Urine; Complete Time: : cp 11/03 23:55 Order name: Urinalysis w/ reflexes; Complete Time: : cp 11/04 01: Interpretation: Normal except: UKET 3+; UPROT 1+. cp 11/03 23:55 Order name: Magnesium; Complete Time: : cp 11/04 01:13 Order name: Manual Differential EDVT 11/04 01:27 Order name: CT Abd/Pelvis - IV Contrast Only 11/03 23:55 Order name: IV Saline Lock; Complete Time: 00:01 11/03 23:55 Order name: Labs collected and sent; Complete Time: 00:22 11/04 04:15 Order name: PO challenge; Complete Time: 04:21 sp4 Administered Medications: 00:22 Drug: NS 0.9% IV 1000 ml IV at 1 bolus Per protocol; 1000 mL bolus Route: IV; Rate: 1 jb4 bolus; Site: left antecubital; 04:21 Not Given (Patient Refused): ondansetron 4 mg IVP once; over 2 minutes jb4 04:21 Not Given (Patient Refused): mg IVP once; dilute with 10 mL 0.9% NaCl; jb4 give over 2 minutes 04:22 Drug: Ondansetron PO 4 mg PO once Route: PO; jb4 Disposition: 04:16 Co-signature as Attending Physician, Bryson Zafar MD I agree with the assessment sp4 and plan of care. I reviewed the patient's care provided by Advanced Practice Provider \T\ agree w/ the diagnosis \T\ care plan. I personally saw the pt \T\ performed a substantive portion of the visit, incldng all aspects of the (History/Exam/Medical Decision Making). Disposition Summary: 11/04/23 04:17 Discharge Ordered Notes: Location: Home sp4 Problem: new sp4 Symptoms: have improved sp4 Condition: Stable sp4 Diagnosis - Acute medication reaction, reaction to semaglutide, acute nausea and vomiting, sp4 acute dehydration, Followup: sp4 - With: Private Physician - When: 7 - 10 days - Reason: Recheck today's complaints, Continuance of care Discharge Instructions: - Discharge Summary Sheet sp4 - Nausea and Vomiting, Adult, [id number] sp4 Forms: - Patient Portal Instructions sp4 Prescriptions: - ondansetron 8 mg Oral Tablet,disintegrating - take 1 tablet ORAL route every 6 hours PRN nausea; 30 tablet; Refills: 0, sp4 Product Selection Permitted Signatures: [facility] Ervin Davis PA PA cp Bryson, James, RN RN jb4 Bryson Zafar MD MD sp4 Corrections: (The following items were deleted from the chart) 02:16 00:00 Patient is a 38-year-old female who presents to the emergency department with cp complaints of nausea vomiting started about 10:00 this morning. Patient reports she received the semaglutide injection for weight loss at about 9:00 this morning and about an hour later started vomiting. Patient denies any abdominal pain, denies any diarrhea and reports she is been vomiting since 10:00 this morning. Patient reports she has received the injection in the past without any reaction but had skipped for about a month and a half and when she resumed the injection today she did receive the highest dose. cp
--- NOTE | 2023-11-04 04:17 | ER ---
Nurse's Notes [facility] Name: Kaitlin Gimenez Age: 38 yrs Sex: Female : 1985 Arrival Date: 11/03/2023 Time: 23:52 Bed DX1 Private MD: Diagnosis: Acute medication reaction, reaction to semaglutide, acute nausea and vomiting, acute dehydration, Presentation: 11/03 23:57 Chief complaint: EMS states: Pt received a Semiglutide injection this morning, ate jb4 prior to receiving injection. Reports vomiting every hour since receiving injection. Took her home dose of zofran with no relief, was given 4mg of Zofran IV, reports no longer having nausea. Coronavirus screen: At this time, the client does not indicate any symptoms associated with coronavirus-19. Ebola Screen: No symptoms or risks identified at this time. Initial Sepsis Screen: Does the patient meet any 2 criteria? No. Patient's initial sepsis screen is negative. Does the patient have a suspected source of infection? No. Patient's initial sepsis screen is negative. Risk Assessment: Do you want to hurt yourself or someone else? Patient reports no desire to harm self or others. Onset of symptoms was November 04, 2023. Transition of care: patient was not received from another setting of care. 23:57 Method Of Arrival: EMS: [facility] jb4 23:57 Acuity: PALMER 3 jb4 Historical: - Allergies: 11/04 00:00 No Known Allergies; jb4 - PMHx: 00:00 Hypothyroidism; HTN (Hypothyroidism); jb4 - PSHx: 00:00 (Hypothyroidism); jb4 Screenin:00 [facility] ED Fall Risk Assessment (Adult) History of falling in the last 3 months, jb4 including since admission No falls in past 3 months (0 pts) Confusion or Disorientation No (0 pts) Score/Fall Risk Level 0 - 2 = Low Risk Oriented to surroundings. Abuse screen: Denies threats or abuse. Nutritional screening: No deficits noted. Tuberculosis screening: No symptoms or risk factors identified. Assessment: 00:00 General: Appears in no apparent distress. comfortable, Behavior is calm, cooperative, jb4 appropriate for age. Pain: Denies pain. Neuro: Level of Consciousness is awake, alert, obeys commands, Oriented to person, place, time, situation. Cardiovascular: Patient's skin is warm and dry. Respiratory: Airway is patent Respiratory effort is even, unlabored, Respiratory pattern is regular, symmetrical. GI: No signs and/or symptoms were reported involving the gastrointestinal system. : No signs and/or symptoms were reported regarding the genitourinary system. EENT: No signs and/or symptoms were reported regarding the EENT system. Derm: Skin is intact, Skin is pink, warm \T\ dry. Musculoskeletal: Circulation, motion, and sensation intact. Range of motion: intact in all extremities. 01:28 Reassessment: Patient appears in no apparent distress at this time. Patient and/or jb4 family updated on plan of care and expected duration. Pain level reassessed. Patient is alert, oriented x 3, equal unlabored respirations, skin warm/dry/pink. 02:06 Reassessment: Patient appears in no apparent distress at this time. Patient and/or jb4 family updated on plan of care and expected duration. Pain level reassessed. Patient is alert, oriented x 3, equal unlabored respirations, skin warm/dry/pink. 04:34 Reassessment: Patient appears in no apparent distress at this time. Patient and/or jb4 family updated on plan of care and expected duration. Pain level reassessed. Patient is alert, oriented x 3, equal unlabored respirations, skin warm/dry/pink. Vital Signs: 11/03 23:57 BP 149 / 102; Pulse 84; Resp 16; Pulse Ox 99% on R/A; Weight 98.43 kg (R); Height 5 ft. jb4 6 in. ; Pain 0/10; 11/04 02:06 BP 137 / 93; Pulse 92; Resp 16; Pulse Ox 98% on R/A; jb4 04:30 BP 145 / 89; Pulse 89; Resp 16; Pulse Ox 97% on R/A; pf1 11/03 23:57 Body Mass Index 35.02 (98.43 kg, 167.64 cm) jb4 11/03 23:57 Pain Scale: Adult jb4 ED Course: 11/03 23:53 Patient arrived in ED. kl 23:54 Ervin Davis PA is PHCP. cp 23:54 Bryson Zafar MD is Attending Physician. cp 11/04 00:00 Triage completed. jb4 00:00 Arm band placed on right wrist. jb4 00:00 Patient has correct armband on for positive identification. Bed in low position. Call jb4 light in reach. Side rails up X 1. Client placed on continuous cardiac and pulse oximetry monitoring. NIBP monitoring applied. 00:00 Maintain EMS IV. Dressing intact. Site clean \T\ dry. Gauge \T\ site: 20g RH. jeremy 4 02:30 CT Abd/Pelvis - IV Contrast Only In Process Unspecified. EDMS 04:35 No provider procedures requiring assistance completed. IV discontinued, intact, jb4 bleeding controlled, No redness/swelling at site. Pressure dressing applied. Administered Medications: 00:22 Drug: NS 0.9% IV 1000 ml IV at 1 bolus Per protocol; 1000 mL bolus Route: IV; Rate: 1 jb4 bolus; Site: left antecubital; 04:21 Not Given (Patient Refused): ondansetron 4 mg IVP once; over 2 minutes jb4 04:21 Not Given (Patient Refused): [id number] mg IVP once; dilute with 10 mL 0.9% NaCl; jb4 give over 2 minutes 04:22 Drug: Ondansetron PO 4 mg PO once Route: PO; jb4 Outcome: 04:17 Discharge ordered by . sp4 04:35 Discharged to home ambulatory, jb4 04:35 Condition: stable 04:35 Discharge instructions given to patient, Instructed on discharge instructions, follow up and referral plans. medication usage, Demonstrated understanding of instructions, follow-up care, medications, Prescriptions given X 1, 04:37 Patient left the ED. jb4 Signatures: Dispatcher [employer] EDTN Maribel Moran RN RN kl Page, Corey, PA PA cp Bryson, James, RN RN jb4 Gissel Bowser RN RN [email or web address] Bryson Zafar MD MD sp4 Corrections: (The following items were deleted from the chart) 04:37 04:35 Discharge instructions given to patient, Instructed on discharge instructions, jb4 follow up and referral plans. Demonstrated understanding of instructions, follow-up care, medications, Prescriptions given X jb4
[2023-11-04 04:25] LABS: Blood Morphology Comment NOT SEEN (NOT SEEN); Platelet Estimate ADEQ
[2023-11-04] MEDS ORDERED: ONDANSETRON 4 MG (ODT) TAB ONE (04:36)
[2023-11-04 04:44] VITALS: BP 145/89; O2SAT 97
--- NOTE | 2023-11-04 21:34 | RAD REPORT ---
EXAM DESCRIPTION: CT Abdomen and Pelvis With Intravenous Contrast CLINICAL HISTORY: The patient is 38 years old and is Female; NAUSEA / VOMITING TECHNIQUE: Axial computed tomography images of the abdomen and pelvis with intravenous contrast. S agittal and coronal reformatted images were created and reviewed. This CT exam was performed using one or more of the following dose reduction techniques: automated exposure control, adjustment of t he mA and/or kV according to patient size, and/or use of iterative reconstruction technique. COMPARISON: No relevant prior studies available. FINDINGS: Lung bases: Unremarkable. No mass. No consolidation. Mediastinum: Small hiatal hernia. ABDOMEN: Liver: Mild hepatomegaly. Gallbladder and bile ducts: Unremarkable. No calcified stones. No ductal dilation. Pancreas: Unremarkable. No mass. No ductal dilation. Spleen: Unremarkable. No splenomegaly. Adrenals: Unremarkable. No mass. Kidneys and ureters: Unremarkable. No solid mass. No hydronephrosis. Stomach and bowel: Scattered colonic diverticula. No obstruction. No mucosal thickening. PELVIS: Appendix: No findings to suggest acute appendicitis. Bladder: Unremarkable. Reproductive: 1.9 cm simple right ovarian/adnexal cysts. No follow-up imaging is recommended. 9 mm cyst in the lower uterine segment. ABDOMEN and PELVIS: Intraperitoneal space: Unremarkable. No free air. No significant fluid collection. Bones/joints: No acute fracture. No dislocation. Soft tissues: Unremarkable. Vasculature: Phleboliths in the pelvis. No abdominal aortic aneurysm. Lymph nodes: Unremarkable. No enlarged lymph nodes. IMPRESSION: No acute finding in the abdomen/pelvis. Electronically signed by: Enoch Edmonds MD 11/04/2023 03:28 AM [employer] Due to temporary technical issues with the PACS/Fluency reporting system, reports are being signed by the in house radiologists without review as a courtesy to insure prompt reporting. The interpreting radiologist is fully responsible for the content of the report.
== END 2023-11-04 04:37 | disposition home or self-care (01) ==
LOC: ER 23:52
DX: R11.2 Nausea with vomiting, unspecified (principal); T50.995A Adverse effect of other drugs, medicaments and biological substances, initial encounter; E86.0 Dehydration
CPT/HCPCS: 85025; 81001; 36415; 83735; 81025; 83690; 80053; 74177; 99284; Q9967; Q0162; J7030